=== PATIENT | male | born 1985 | race Caucasian/White ===

== ENCOUNTER 2019-03-22 10:06 | Day surgery (SDC) | payer BC ==
[~2019-03-22] VITALS: Ht 180.3 cm; Wt 82.0 kg
[~2019-03-22 10:06] MED LIST: ACETAMINOPHEN 500 MG TABLET PO PRN; HYDROmorphone 2 MG/ML VIAL IV PRN; IV RINGERS,LACTATED 1000ML 1,000 ML IV SCH; LIDOCAINE 1% PF 2 ML VIAL. ID PRN; MORPHINE SULFATE 2 MG/ML VIAL. IV PRN; ONDANSETRON PF 4 MG/2 ML VIAL. IV PRN; PROCHLORPERAZINE 10 MG/2 ML VIAL. IV PRN; fentaNYL PF VIAL 100 MCG/2 ML VIAL IV PRN
[2019-03-22] MEDS ORDERED: MIDAZOLAM HCL/PF 2 MG/2 ML VIAL. ONE (11:37)
[2019-03-22] MEDS ORDERED: fentaNYL PF VIAL 250 MCG/5 ML VIAL ONE (11:37)
[2019-03-22] MEDS ORDERED: ePHEDrine PF IN SALINE 50 MG/10 ML SYRINGE. IV ONE (12:02)
[2019-03-22] MEDS ORDERED: BUPIVACAINE-EPI 0.25%-1:200000 MPF 30 ML VIAL. INJ ONE ×2 (12:15→12:30)
[2019-03-22] MEDS ORDERED: KETOROLAC 30 MG/ML VIAL. ONE (12:16)
[2019-03-22] MEDS ORDERED: DEXAMETHASONE SOD PHOS 4 MG/ML VIAL ONE (12:16)
[2019-03-22] MEDS ORDERED: ONDANSETRON PF 4 MG/2 ML VIAL. ONE (12:17)
--- NOTE | 2019-03-22 12:31 | PDOC4 ---
Operative Note Operative Note Date: 03/22/2019 Preoperative diagnosis: Bilateral groin adenopathy Postoperative diagnosis: Same Procedure: Left groin lymph node biopsy Surgeon: Lio Specimen: Left groin lymph node Dictation: Patient is a 33-year-old male who's complained of bilateral groin pain ultrasound done on both groin showed bilateral lymphadenopathy with larger lymph nodes on the left side he denies any other adenopathy no adenopathy noted in the cervical or axillary areas. Procedure of lymph node biopsy left groin was explained to the patient in detail risk benefits were also discussed including bleeding infection alternatives to this procedure also discussed with the patient who seemed to understand and gave both verbal and written consent to have the procedure performed. Patient was taken to the operating room placed in supine position general anesthesia was initiated once patient was sleep and LMA was placed his left groin was prepped and draped usual sterile fashion using ChloraPrep and area over the mass was incised with 15 blade scalpel was carried down through the subcutaneous tissue using the cautery by hemostasis very large lymph node approximately 2x2 cm was sharply excised using the cautery and sent fresh for pathology. Area around the incision was injected with quarter percent Marcaine with epinephrine. Patient was awakened and extubated in the operating room taken to recovery in stable condition all sponge instrument needle counts listed as correct estimated blood loss less than 5 mL NELLI MALDONADO MD Mar 22, 2019 12:31
[2019-03-22] MEDS ORDERED: SEVOFLURANE 31 TO 60 MINUTES. IH ONE (12:33)
--- NOTE | 2019-03-22 12:33 | DISCH ---
DISCHARGE INSTRUCTIONS Condition on Discharge Condition on Discharge: Stable Activity After Discharge Activity Instructions for Disc: Activity as tolerated Diet after Discharge Diet after Discharge: Regular Wound Incision Care Other wound/incision instructi: May shower in 24 hours Contacting the after DC Call your doctor for: If your condition worsens Follow-Up Follow up with: Dr Maldonado in 2 weeks NELLI MALDONADO MD Mar 22, 2019 12:33
[2019-03-22] MEDS ORDERED: HYDR-3164 PO (12:51)
[2019-03-22] MEDS ORDERED: HYDROcodone/APAP 5/325MG 1 TAB TABLET PO ONE ×2 (13:00)
[2019-03-22] MEDS ORDERED: ceFAZolin 2GM PREMIX 2 GM/50 ML BAG IV ONE (13:00)
[2019-03-22 13:30] VITALS: BP 124/76
== END 2019-03-22 13:40 | disposition home or self-care (01) ==
LOC: SURG 10:06
PROVIDERS: ATTEND Surgery
DX: R59.1 Generalized enlarged lymph nodes (principal); F41.9 Anxiety disorder, unspecified; Z87.891 Personal history of nicotine dependence; Z98.890 Other specified postprocedural states
CPT/HCPCS: 38500; 88184; 88185; A7015; J0171; J0696; J1100; J1885; J2250; J2405; J3010